=== PATIENT | female | born 1955 | race Caucasian/White ===

== ENCOUNTER 2017-12-18 07:10 | Day surgery (SDC) | payer BC ==
[~2017-12-18 07:10] MED LIST: DIAZEPAM 5 MG TAB PO; DIPHENHYDRAMINE 50 MG CAP PO; FAMOTIDINE 20 MG TAB PO; SOD CHLORIDE 0.45% 1,000 ML IV
[2017-12-18 08:22] LABS: ADD MAN DIFF? NO
[2017-12-18 08:29] LABS: BASOPHILS % 0.6 % (0.0-2.0); EOSINOPHILS # 0.3 10^3/ul (0.0-0.5); EOSINOPHILS % 3.8 % (0.0-7.0); HEMATOCRIT 35.4 % (37.0-47.0); HEMOGLOBIN 11.3 g/dl (12.0-16.0); LYMPHOCYTES # 1.9 10^3/ul (0.8-2.9); MEAN CORPUSCULAR HEMOGLOBIN 25.8 pg (29.0-33.0); MEAN CORPUSCULAR HGB CONC 31.9 g/dl (32.0-37.0); MEAN CORPUSCULAR VOLUME 80.8 fl (82.0-101.0); MEAN PLATELET VOLUME 10.3 fl (7.4-10.4); MONOCYTE # 0.6 10^3/ul (0.3-0.9); MONOCYTES % 8.4 % (0.0-11.0); NEUTROPHIL # 3.8 10^3/ul (1.6-7.5); NEUTROPHILS % 57.9 % (39.0-77.0); PLATELET COUNT 220 10^3/UL (140-415); RED BLOOD COUNT 4.38 10^6/ul (4.20-5.40); RED CELL DISTRIBUTION WIDTH 13.6 % (11.5-14.5)
[2017-12-18 08:29] LABS: WHITE BLOOD COUNT 6.6 10^3/ul (4.8-10.8)
[2017-12-18] MEDS ORDERED: LIDOCAINE 1% (MDV) 20 ML INJ (08:37)
[2017-12-18] MEDS ORDERED: NITROGLYCERIN (IC) 100 MCG/ML INJ (08:37)
[2017-12-18] MEDS ORDERED: VERAPAMIL 5 MG INJ (08:37)
[2017-12-18] MEDS ORDERED: HEPARIN 1000 UNITS/ML 10 ML INJ (08:37)
[2017-12-18] MEDS ORDERED: IODIXANOL LOCM 100 ML BTL (08:37)
[2017-12-18] MEDS ORDERED: MIDAZOLAM 1 MG/ML 2 ML INJ (08:39)
[2017-12-18 08:51] LABS: INR 0.89; PROTIME 12.1 Sec (11.9-14.9); PT RATIO 0.9
[2017-12-18 08:54] LABS: ANION GAP 18 (8-16); CARBON DIOXIDE 24 mmol/L (21-31); CHLORIDE 106 mmol/L (97-110); CHOL/HDL RATIO 4.4 RATIO; CHOLESTEROL 205 mg/dl (100-200); GLUCOSE 143 mg/dl (70-220); HDL CHOLESTEROL 46 mg/dl (35-98); LDL CHOLESTEROL,CALCULATED 115 mg/dl; TRIGLYCERIDES 221 mg/dl (0-149)
[2017-12-18 08:55] LABS: BLOOD UREA NITROGEN 27 mg/dl (7-20); CALCIUM 9.4 mg/dl (8.4-10.2); CREATININE 0.79 mg/dl (0.44-1.00); POTASSIUM 4.9 mmol/L (3.5-5.1); SODIUM 143 mmol/L (135-144)
[2017-12-18] MEDS ORDERED: FENTAnyl 50 MCG/ML VIAL (10:28)
[2017-12-18] MEDS ORDERED: SOD CHLORIDE 0.9% 1,000 ML IV (10:52)
[2017-12-18] MEDS ORDERED: AL HYDROX/MG HYDROX/SIMETH 30 ML CUP PO (11:00)
[2017-12-18] MEDS ORDERED: morphine 2 MG INJ IV (11:00)
[2017-12-18] MEDS ORDERED: ONDANSETRON 4 MG INJ IV (11:00)
[2017-12-18] MEDS: AMLODIPINE 5 MG TAB PO (11:26)
[2017-12-18] MEDS: hydrALAzine 20 MG INJ IV (12:55)
[2017-12-18] MEDS: ACETAMINOPHEN 325 MG TAB PO (13:03)
== END 2017-12-18 15:10 | disposition home or self-care (01) ==
LOC: SDS 07:10
DX: I25.82 Chronic total occlusion of coronary artery (principal); I10 Essential (primary) hypertension; E78.5 Hyperlipidemia, unspecified
CPT/HCPCS: 71045; 80048; 80061; 82962; 85025; 85610; 85730; 93005; 93458; 93571